=== PATIENT | female | born 1960 | race Caucasian/White ===

== ENCOUNTER → 2017-07-04 | Outpatient (CLI) | payer BC ==
[~2017-07-04] MED LIST: ACET-1718 PO; ATOR40TA24 PO; BACDS PO; BENA1TAB59 PO; CALC500T6 PO; CHOL200021 PO; CHON250C2 PO; ESC10 PO; FLAX100053 PO; GABA-1 PO; GABA-549 PO; GLUC100013 PO; IBUP800T37 PO; PHE100 PO; PIRO-1 PO; SIMV-49 PO; SIMV-54 PO; SPIR25TA76 PO; [UNRECOGNIZED DRUG - CODE] PO
--- NOTE | 2017-07-04 14:14 | RADIOLOGY IMAGING REPORT ---
FACILITY: [facility] PATIENT NAME: Marie Rob : 1960 MR: [id number] V: [id number] EXAM DATE: ORDERING PHYSICIAN: AGNIESZKA BAUTISTA TECHNOLOGIST: Location: [facility] Patient: Marie Rob : 1960 Visit/Account:[id number] Date of Sevice: 07/04/2017 TRANSVAGINAL NON-OB HISTORY: POSTMENOPAUSAL BLEEDING TECHNIQUE: Transvaginal ultrasound pelvis. COMPARISON: January 17, 2008 FINDINGS: Uterus: Retroverted; 4 cm length x 2.3 cm AP x 2.8 cm transverse. Myometrium: Unremarkable. Endometrium: Unremarkable; double thickness 4.2 mm. Cervix: Grossly negative. Ovaries: Right - not seen Left - not seen Adnexa: Grossly unremarkable. Free pelvic fluid: None. IMPRESSION: Small atrophic uterus Neither ovary was visualized Report Dictated By: Lisa Lockett MD at 07/04/2017 2:08 PM Report E-Signed By: Lisa Lockett MD at 07/04/2017 2:10 PM WSN:[id number]
== END ==
LOC: RAD 10:01
PROVIDERS: ATTEND Obstetrics & Gynecology
DX: Z02.9 Encounter for administrative examinations, unspecified (principal)
CPT/HCPCS: 76830

== ENCOUNTER → 2017-09-08 | Outpatient (CLI) | payer BC ==
--- NOTE | 2017-09-08 13:47 | RADIOLOGY IMAGING REPORT ---
FACILITY: [facility] PATIENT NAME: KING DE LA ROSA : [id number] MR: [id number] V: [id number] EXAM DATE: [id number] ORDERING PHYSICIAN: LAMIN SHANKAR TECHNOLOGIST: Antonietta Juarez PROCEDURE:BILATERAL DIGITAL SCREENING MAMMOGRAM WITH CAD ASSISTED INTERPRETATION & 3D TOMOSYNTHESIS COMPARISON:Prior mammograms 07/15/16, 05/16/14, 12/27/12. INDICATIONS:SCREENING FINDINGS: The breasts have scattered fibroglandular parenchymal densities. There are no mammographic findings concerning for malignancy. No significant change from priors. DIAGNOSTIC CATEGORY 1--NEGATIVE. RECOMMENDATIONS: ROUTINE MAMMOGRAM AND CLINICAL EVALUATION IN 1 YEAR. IMPRESSION: BIRADS 1: Negative. Dictated by: El Matthews on 09/08/2017 at 9:26 Transcribed by: IDALMIS on 09/08/2017 at 10:54 Approved by: El Matthews on 09/08/2017 at 13:45 [facility]
== END ==
LOC: MAMO 01:55
PROVIDERS: ATTEND Physician Assistant
DX: Z12.31 Encounter for screening mammogram for malignant neoplasm of breast (principal)
CPT/HCPCS: 77063; 77067

== ENCOUNTER → 2017-09-08 | Outpatient (CLI) | payer BC ==
[2017-09-08 06:36] LABS: PLATELET COUNT, AUTOMATED 518 K/uL (150-450)
== END ==
LOC: LAB 06:06
PROVIDERS: ATTEND Psychiatry & Neurology Neurology
DX: H21.563 Pupillary abnormality, bilateral (principal); R56.9 Unspecified convulsions; R20.2 Paresthesia of skin; L74.9 Eccrine sweat disorder, unspecified; Z79.899 Other long term (current) drug therapy; E55.9 Vitamin D deficiency, unspecified
CPT/HCPCS: 36415; 82040; 82247; 82306; 82310; 82374; 82435; 82565; 82607; 82746; 82947; 84075; 84132; 84155; 84295; 84450; 84460; 84520; 85025

== ENCOUNTER → 2017-09-08 | Outpatient (CLI) | payer BC | LOC: LAB 06:01 | PROVIDERS: ATTEND Physician Assistant | DX: E78.5 Hyperlipidemia, unspecified (principal) | CPT/HCPCS: 36415; 82465; 83718; 84478 ==